=== PATIENT | female | born 1960 | race Hispanic/Latino ===

== ENCOUNTER 2017-02-17 23:23 | Emergency (ER) | payer MEDICARE, MEDICAID ==
[2017-02-17 23:24] VITALS: BMI 32.8
[2017-02-17 23:30] VITALS: RESP 16; TEMP 98.6; O2SAT 97
--- NOTE | 2017-02-17 23:49 | C.PDOC ---
History Of Present Illness 56 y/o female Hx of rheumatoid arthritis presents to the ED c/o dizziness , nausea, and vomiting that has been worsening for 1 month. Patient describes the dizziness as a spinning sensation. The patient's onset has been since her pain management changed her Rx from Oxycontin to Oxycodone. The patient has been purposefully reducing the dosage of Oxycodone to reduce the dizziness but there has not been any improvement. The patient denies fever, no abdominal pain, chills,and sweats. CO WORSENING DIZZY X 1 MONTH. PT ONSET SINCE PAIN MGMT CHANGED HER FROM OXYCONTIN TO OXYCODONE. HO CHRONIC PAIN DUE TO RA. PAIN MGMT DR PATEL? PS HAS BEEN PURPOSEFULLY REDUCING DOSE OF OXYCODONE TO REDUCE DIZZYNESS BUT NO IMPROVE. PAIN "SPINNING". +NV EXAM MILD DIST NONTOXIC HEENT NO [facility] NEURO INTACT REMIANDER NEG Time Seen by Provider: 02/17/17 23:26 History Per: Patient History/Exam Limitations: no limitations Onset/Duration Of Symptoms: Days Current Symptoms Are (Timing): Still Present Activity At Onset Of Symptoms: Other (Not known) Seizure Or Post-ictal Symptoms: None Possible Causative Factor(s): Other (Not known) Fall Associated With With Symptoms: No Recent travel outside of the [place]: No Past Medical History Reviewed: Historical Data, Nursing Documentation, Vital Signs Vital Signs: Last Vital Signs Temp 98.6 F 02/17/17 23:27 Pulse 82 02/18/17 01:44 Resp 16 02/18/17 01:44 BP 113/61 02/18/17 01:44 Pulse Ox 97 02/18/17 03:59 - Medical History PMH: Anxiety, Arthritis, Asthma, COPD, Depression, Fibromyalgia, Hypercholesterolemia, Parkinson's Disease, Peripheral Edema, Rheumatoid Arthritis Surgical History: Endoscopy Family History: States: No Known Family Hx - Social History Hx Tobacco Use: Yes Hx Alcohol Use: No Hx Substance Use: No - Immunization History Hx Tetanus Toxoid Vaccination: No Hx Influenza Vaccination: No Hx Pneumococcal Vaccination: No Review Of Systems Except As Marked, All Systems Reviewed And Found Negative. Constitutional: Negative for: Fever, Chills, Sweats Eyes: Negative for: Vision Change Gastrointestinal: Positive for: Nausea, Vomiting Neurological: Positive for: Dizziness. Negative for: Headache Physical Exam - Physical Exam Appears: Non-toxic, Other (Mild distress) Skin: Normal Color, Warm, Dry Head: Atraumatic, Normacephalic Eye(s): bilateral: Normal Inspection (No nystagmus), PERRL, EOMI Nose: Normal Oral Mucosa: Moist Neck: Supple Chest: Symmetrical Cardiovascular: Rhythm Regular Respiratory: Normal Breath Sounds Gastrointestinal/Abdominal: Soft, No Tenderness, No Guarding, No Rebound Extremity: Normal ROM, Capillary Refill (<2sec.) Neurological/Psych: Oriented x3, Normal Speech, Normal Cognition, Other (No focal deficits) Gait: Steady ED Course And Treatment - Laboratory Results Result Diagrams: 02/17/17 23:55 02/17/17 23:55 ECG: Interpreted By Ny ECG Rhythm: Sinus Tachycardia ECG Interpretation: Abnormal Rate From EC O2 Sat by Pulse Oximetry: 97 (RA) Pulse Ox Interpretation: Normal - Radiology CXR: Interpreted by Me CXR Interpretation: Yes: No Acute Disease (NCP) - CT Scan/US CT Head Other Rad Studies (CT/US): Read By Radiologist, Radiology Report Reviewed CT/US Interpretation: EXAM: CT Head Without Intravenous Contrast. CLINICAL HISTORY: 56 years old, female; Signs and symptoms; Dizziness; Additional info: Dizzy. TECHNIQUE: Axial computed tomography images of the head/brain without intravenous contrast. All CT scans at. this facility use one or more dose reduction techniques, viz.: automated exposure control; ma/kV. adjustment per patient size (including targeted exams where dose is matched to indication; i.e. head);. or iterative reconstruction technique. COMPARISON: No relevant prior studies available. FINDINGS: Brain: Mild atrophy. No intracranial hemorrhage. No mass. No definite edema. Ventricles: No hydrocephalus. Bones/ joints: No acute fracture. Soft tissues: Unremarkable. Vasculature: Mild atherosclerotic disease of intracranial arteries. Sinuses: No acute sinusitis. Postsurgical changes. Mastoid air cells: No mastoid effusion. Orbits: Unremarkable as visualized. IMPRESSION: 1. No acute intracranial abnormality. 2. Incidental/non-acute findings are described above. CTA Other Rad Studies (CT/US): Read By Radiologist, Radiology Report Reviewed CT/US Interpretation: EXAM: CT Angiography Chest With Intravenous Contrast. CLINICAL HISTORY: 56 years old, female; Signs and symptoms; Other: Tachycardia ; Additional info: Dizzy tachycardia. R/O pe. TECHNIQUE: Axial computed tomographic angiography images of the chest with intravenous contrast using. pulmonary embolism protocol. All CT scans at this facility use one or more dose reduction. techniques, viz.: automated exposure control; ma/kV adjustment per patient size (including targeted. exams where dose is matched to indication; i.e. head); or iterative reconstruction technique. MIP reconstructed images were created and reviewed. Coronal and sagittal reformatted images were created and reviewed. CONTRAST: 100 mL of [id number] administered intravenously. COMPARISON: CR - CHEST PORTABLE 04/09/2015 4:46:57 PM. FINDINGS: Limitations: Motion artifact - mild. Pulmonary arteries: No definite pulmonary embolism. Aorta: Mild atherosclerotic disease. No aneurysm. Lungs: Mild centrilobular emphysematous changes. Mild mosaic pattern of lung parenchyma with. groundglass opacities. Mild patchy groundglass/nodular airspace disease within RIGHT middle lobe,. lesser extent RIGHT lower lobe. Pleural space: No significant effusion. No pneumothorax. Heart: No cardiomegaly. No significant pericardial effusion. Mediastinum: Small hiatal hernia. Thyroid: 1.9 x 1.4 x 1.8 cm cyst or nodule within LEFT lobe. Bones/joints: No acute fracture. No dislocation. Soft tissues: Unremarkable. Lymph nodes: No pathologically enlarged lymph nodes. IMPRESSION: 1. No definite CT evidence of pulmonary embolism. 2. Mild patchy groundglass/nodular airspace disease within RIGHT middle, lower lobes. Consider. inflammatory, infectious, or neoplastic etiologies. 3. Mild mosaic pattern of lung parenchyma, nonspecific. Clinical correlation is needed. 4. Thyroid nodule. Followup as clinically warranted. 5. Incidental/non-acute findings are described above. Progress - Re-Evaluation Re-evaluation Note: 02/18/17 02:39 FEELS BETTER VSS. ADVISED FU PAIN MGMT - Data Reviewed Data Reviewed: Lab, Diagnostic imaging, EKG, Old records Medical Decision Making Medical Decision Making: Plain * CT Scan * Antivert * Dilaudid * IV fluids * EKG Disposition Counseled Patient/Family Regarding: Studies Performed, Diagnosis, Need For Followup - Disposition Referrals: YOUR,PAIN MGMT [Other] Disposition: HOME/ ROUTINE Disposition Time: 02:39 Condition: IMPROVED Prescriptions: Ondansetron ODT [Zofran ODT] 4 mg PO TID PRN #12 odt PRN Reason: Nausea/Vomiting Instructions: Acute Nausea and Vomiting (ED), Dizziness (ED) Forms: [facility] (French) - Clinical Impression Clinical Impression: Dizziness, Nausea, Chronic pain - Scribe Statement The provider has reviewed the documentation as recorded by the Scribe (Lucia Jameson) All medical record entries made by the Scribe were at my direction and personally dictated by me. I have reviewed the chart and agree that the record accurately reflects my personal performance of the history, physical exam, medical decision making, and the department course for this patient. I have also personally directed, reviewed, and agree with the discharge instructions and disposition.
[2017-02-17] MEDS ORDERED: Sodium Chloride 0.9% 1,000 ML IV ONE (23:50)
[2017-02-17 23:58] LABS: BASO # 0.1 K/uL (0.0-0.2); BASO % 0.9 % (0.0-2.0); EOS % 0.3 % (0.0-4.0); HEMATOCRIT 41.3 % (34.0-47.0); LYMPH # 1.1 K/uL (1.0-4.3); LYMPH % 17.4 % (20.0-40.0); MEAN CELL VOLUME 99.8 fL (81.0-99.0); MEAN CORPUSCULAR HEMOGLOBIN 33.2 pg (27.0-31.0); MEAN CORPUSCULAR HGB CONC 33.3 g/dL (33.0-37.0); MEAN PLATELET VOLUME 8.2 fL (7.2-11.7); MONO # 0.3 K/uL (0.0-0.8); MONO % 4.3 % (0.0-10.0); NRBC % 0.2 % (0.0-2.0); RED CELL DISTRIBUTION WIDTH 13.4 % (11.5-14.5); WHITE BLOOD COUNT 6.3 K/uL (4.8-10.8)
[2017-02-18] MEDS ORDERED: Sodium Chloride 0.9% 1,000 ML ONE
[2017-02-18 00:15] LABS: INR 0.9
[2017-02-18 00:18] LABS: BLOOD UREA NITROGEN 10 mg/dL (7-17); CALCIUM 8.9 mg/dl (8.6-10.4); CARBON DIOXIDE 26 mmol/L (22-30); CHLORIDE 96 mmol/L (98-107); GFR AFRICAN-AMERICAN > 60; GLUCOSE,RANDOM 98 mg/dL (65-105); POTASSIUM 3.7 mmol/L (3.6-5.2); SODIUM 135 mmol/L (132-148)
[2017-02-18] MEDS ORDERED: Iodixanol 320 MG/ML 100 ML BOTTLE IV ONE (01:08)
[2017-02-18 01:44] VITALS: BP 113/61; PULSE 82
--- NOTE | 2017-02-18 01:54 | CT ---
EXAM: CT Head Without Intravenous Contrast CLINICAL HISTORY: 56 years old, female; Signs and symptoms; Dizziness; Additional info: Dizzy TECHNIQUE: Axial computed tomography images of the head/brain without intravenous contrast. All CT scans at this facility use one or more dose reduction techniques, viz.: automated exposure control; ma/kV adjustment per patient size (including targeted exams where dose is matched to indication; i.e. head); or iterative reconstruction technique. COMPARISON: No relevant prior studies available. FINDINGS: Brain: Mild atrophy. No intracranial hemorrhage. No mass. No definite edema. Ventricles: No hydrocephalus. Bones/joints: No acute fracture. Soft tissues: Unremarkable. Vasculature: Mild atherosclerotic disease of intracranial arteries. Sinuses: No acute sinusitis. Postsurgical changes. Mastoid air cells: No mastoid effusion. Orbits: Unremarkable as visualized. IMPRESSION: 1. No acute intracranial abnormality. 2. Incidental/non-acute findings are described above.
--- NOTE | 2017-02-18 02:07 | CT ---
EXAM: CT Angiography Chest With Intravenous Contrast CLINICAL HISTORY: 56 years old, female; Signs and symptoms; Other: Tachycardia; Additional info: Dizzy tachycardia R/O pe TECHNIQUE: Axial computed tomographic angiography images of the chest with intravenous contrast using pulmonary embolism protocol. All CT scans at this facility use one or more dose reduction techniques, viz.: automated exposure control; ma/kV adjustment per patient size (including targeted exams where dose is matched to indication; i.e. head); or iterative reconstruction technique. MIP reconstructed images were created and reviewed. Coronal and sagittal reformatted images were created and reviewed. CONTRAST: 100 mL of [id number] administered intravenously. COMPARISON: CR - CHEST PORTABLE 04/09/2015 4:46:57 PM FINDINGS: Limitations: Motion artifact - mild. Pulmonary arteries: No definite pulmonary embolism. Aorta: Mild atherosclerotic disease. No aneurysm. Lungs: Mild centrilobular emphysematous changes. Mild mosaic pattern of lung parenchyma with groundglass opacities. Mild patchy groundglass/nodular airspace disease within RIGHT middle lobe, lesser extent RIGHT lower lobe. Pleural space: No significant effusion. No pneumothorax. Heart: No cardiomegaly. No significant pericardial effusion. Mediastinum: Small hiatal hernia. Thyroid: 1.9 x 1.4 x 1.8 cm cyst or nodule within LEFT lobe. Bones/joints: No acute fracture. No dislocation. Soft tissues: Unremarkable. Lymph nodes: No pathologically enlarged lymph nodes. IMPRESSION: 1. No definite CT evidence of pulmonary embolism. 2. Mild patchy groundglass/nodular airspace disease within RIGHT middle, lower lobes. Consider inflammatory, infectious, or neoplastic etiologies. 3. Mild mosaic pattern of lung parenchyma, nonspecific. Clinical correlation is needed. 4. Thyroid nodule. Followup as clinically warranted. 5. Incidental/non-acute findings are described above.
--- NOTE | 2017-02-18 09:41 | RAD ---
PROCEDURE: CHEST RADIOGRAPH, 1 VIEW HISTORY: DIZZY COMPARISON: Comparison is made to 11/16/2016 FINDINGS: LUNGS: No evidence of new infiltrate or consolidation in the lungs. PLEURA: No pneumothorax or pleural fluid seen. CARDIOVASCULAR: Normal. OSSEOUS STRUCTURES: No significant abnormalities. VISUALIZED UPPER ABDOMEN: Normal. OTHER FINDINGS: None. IMPRESSION: No active disease.
--- NOTE | 2017-02-19 08:01 | CARD ---
APPROVED REPORT EKG Measurement Heart [id number] <Conclusion> Sinus tachycardia Otherwise normal ECG
== END 2017-02-18 02:47 | disposition home or self-care (01) ==
LOC: C.ER 23:23
DX: R42 Dizziness and giddiness (principal); R11.0 Nausea; G89.29 Other chronic pain
CPT/HCPCS: 70450; 71010; 71275; 80048; 82948; 84484; 85025; 85378; 85610; 85730; 93005; 99284; J7040; Q9967

== ENCOUNTER 2017-03-22 11:46 | Emergency (ER) | payer MEDICARE, MEDICAID ==
[2017-03-22 11:47] VITALS: BMI 32.8
[2017-03-22 11:56] VITALS: RESP 20; TEMP 98.3; O2SAT 98
[2017-03-22 13:23] LABS: HEMATOCRIT 38.1 % (34.0-47.0); MEAN CORPUSCULAR HEMOGLOBIN 32.8 pg (27.0-31.0); MEAN CORPUSCULAR HGB CONC 34.5 g/dL (33.0-37.0); MEAN PLATELET VOLUME 8.7 fL (7.2-11.7); RED CELL DISTRIBUTION WIDTH 12.9 % (11.5-14.5); WHITE BLOOD COUNT 5.9 K/uL (4.8-10.8)
[2017-03-22 13:28] LABS: MEAN CELL VOLUME 95.2 fL (81.0-99.0); PLATELET COUNT 155 K/uL (130-400)
[2017-03-22 13:36] LABS: CHLORIDE 97 mmol/L (98-107); POTASSIUM 3.5 mmol/L (3.6-5.2); SODIUM 138 mmol/L (132-148)
--- NOTE | 2017-03-22 13:37 | C.PDOC ---
History Of Present Illness 56 yr old female with Hx of Parkinson, presents to the ER for frequent falls for the past 2 months. Patient also reports of a persistent rash under the left breast. Patient denies fever, chills, chest pain, SOB, nausea or vomiting. Time Seen by Provider: 03/22/17 13:14 Chief Complaint (Nursing): Dizziness/Lightheaded History Per: Patient History/Exam Limitations: no limitations Onset/Duration Of Symptoms: Days Current Symptoms Are (Timing): Still Present Associated Symptoms Preceding Syncopal Episode: No Predromal Symptoms (Sudden Onset) Seizure Or Post-ictal Symptoms: None Possible Causative Factor(s): New Medications Fall Associated With With Symptoms: No Past Medical History Reviewed: Historical Data, Nursing Documentation, Vital Signs Vital Signs: Last Vital Signs Temp 98.3 F 03/22/17 11:52 Pulse 74 03/22/17 16:50 Resp 20 03/22/17 16:50 BP 118/72 03/22/17 16:50 Pulse Ox 98 03/22/17 16:50 - Medical History PMH: Anxiety, Arthritis, Asthma, COPD, Depression, Fibromyalgia, Hypercholesterolemia, Parkinson's Disease, Peripheral Edema, Rheumatoid Arthritis, Schizophrenia Surgical History: Endoscopy Family History: States: No Known Family Hx - Social History Hx Tobacco Use: Yes Hx Alcohol Use: No Hx Substance Use: No - Immunization History Hx Tetanus Toxoid Vaccination: No Hx Influenza Vaccination: No Hx Pneumococcal Vaccination: No Review Of Systems Except As Marked, All Systems Reviewed And Found Negative. Constitutional: Negative for: Fever, Chills Cardiovascular: Negative for: Chest Pain Respiratory: Negative for: Shortness of Breath Gastrointestinal: Negative for: Nausea, Vomiting Skin: Positive for: Rash (Rash under the left breast) Physical Exam - Physical Exam Appears: Non-toxic, No Acute Distress, Other ((+) Tremor in the lower extremity. ) Skin: Warm, Dry, Rash (Excoriated, moist and weeping rash to under the left breast. Fungal appearing.) Head: Atraumatic, Normacephalic Oral Mucosa: Moist Chest: Symmetrical, No Tenderness Cardiovascular: Rhythm Regular, No Murmur Respiratory: Normal Breath Sounds, No Rales, No Rhonchi, No Wheezing Gastrointestinal/Abdominal: Normal Exam, Soft, No Tenderness, No Guarding, No Rebound Extremity: Normal ROM, No Swelling Neurological/Psych: Oriented x3, Normal Speech ED Course And Treatment - Laboratory Results Result Diagrams: 03/22/17 13:16 03/22/17 13:16 Lab Interpretation: Normal O2 Sat by Pulse Oximetry: 98 (RA) Pulse Ox Interpretation: Normal Medical Decision Making Medical Decision Making: Pt is 56 yo with long psych hx on chronic haldol with reultant tardive dyskinesia and parkinsonian tremor.Pt is on mult meds for same with resultant unsteady gait.pt requires an adjustment of her psych meds,has appt next month for samePt was seen by Crisis counselor who felt pt was not a ganger tpo self or others,could f/u with her psychiatrist Disposition - Disposition Referrals: Sloan Hernandez [Staff Provider] - Disposition: HOME/ ROUTINE Disposition Time: 16:13 Condition: GOOD Additional Instructions: call Dr Hernandez and make an appt to discuss side effects of your psych meds,make adjustments as needed Forms: [facility] (Bermudian), General Discharge Instructions Print Language: MONGOLIAN - Clinical Impression Clinical Impression: Medication adverse effect, Parkinsonian tremor - Scribe Statement The provider has reviewed the documentation as recorded by the Marco Antonio Miner Provider Attestation: All medical record entries made by the Hectoribherson were at my direction and personally dictated by me. I have reviewed the chart and agree that the record accurately reflects my personal performance of the history, physical exam, medical decision making, and the department course for this patient. I have also personally directed, reviewed, and agree with the discharge instructions and disposition.
[2017-03-22 13:39] LABS: ALB/GLOB RATIO 1.1 (1.0-2.1); ALKALINE PHOSPHATASE 80 U/L (38-126); ALT/SGPT 26 U/L (9-52); AST/SGOT 20 U/L (14-36); BLOOD UREA NITROGEN 14 mg/dL (7-17); CARBON DIOXIDE 30 mmol/L (22-30); GFR AFRICAN-AMERICAN > 60; GLUCOSE,RANDOM 85 mg/dL (65-105); TOTAL PROTEIN 6.3 g/dL (6.3-8.3)
[2017-03-22 13:40] LABS: CALCIUM 8.8 mg/dl (8.6-10.4)
[2017-03-22 15:12] LABS: EOSINOPHIL 3 % (0-4); NEUTROPHIL 60 % (50-75); TOTAL CELLS COUNTED 100
[2017-03-22 16:50] VITALS: BP 118/72; PULSE 74
== END 2017-03-22 16:50 | disposition home or self-care (01) ==
LOC: C.ER 11:46
DX: T50.905A Adverse effect of unspecified drugs, medicaments and biological substances, initial encounter (principal); G20 Parkinson's disease